=== PATIENT | male | born 1955 | race Caucasian/White ===

== ENCOUNTER → 2016-08-28 | Outpatient (CLI) | payer OTHER | LOC: MW.LAB 08:24 | PROVIDERS: ATTEND Obstetrics & Gynecology | DX: Z13.9 Encounter for screening, unspecified (principal); L40.9 Psoriasis, unspecified | CPT/HCPCS: 36415; 80076; 85025 ==

== ENCOUNTER → 2016-09-04 | Outpatient (CLI) | payer OTHER | END | disposition home or self-care (01) | LOC: MW.LAB 10:08 | PROVIDERS: ATTEND Dermatology | DX: Z13.9 Encounter for screening, unspecified (principal); L40.9 Psoriasis, unspecified | CPT/HCPCS: 36415; 80076; 85025 ==

== ENCOUNTER → 2016-09-11 | Outpatient (CLI) | payer OTHER | LOC: MW.LAB 09:16 | PROVIDERS: ATTEND Dermatology | DX: Z13.9 Encounter for screening, unspecified (principal); L40.9 Psoriasis, unspecified; Z88.0 Allergy status to penicillin | CPT/HCPCS: 36415; 80076; 85025 ==

== ENCOUNTER → 2016-09-18 | Outpatient (CLI) | payer OTHER | LOC: MW.LAB 08:49 | PROVIDERS: ATTEND Dermatology | DX: L40.9 Psoriasis, unspecified (principal); Z13.9 Encounter for screening, unspecified | CPT/HCPCS: 36415; 80076; 85025 ==

== ENCOUNTER → 2016-10-02 | Outpatient (CLI) | payer OTHER | LOC: MW.LAB 08:46 | PROVIDERS: ATTEND Obstetrics & Gynecology | DX: L40.9 Psoriasis, unspecified (principal); Z13.9 Encounter for screening, unspecified; Z88.0 Allergy status to penicillin | CPT/HCPCS: 36415; 80076; 85025 ==

== ENCOUNTER → 2016-10-16 | Outpatient (CLI) | payer OTHER | LOC: MW.LAB 08:45 | PROVIDERS: ATTEND Dermatology | DX: Z13.9 Encounter for screening, unspecified (principal); L40.9 Psoriasis, unspecified | CPT/HCPCS: 36415; 80076; 85025 ==

== ENCOUNTER → 2016-11-10 | Outpatient (CLI) | payer OTHER | LOC: MW.LAB 08:51 | PROVIDERS: ATTEND Dermatology | DX: Z13.9 Encounter for screening, unspecified (principal); L40.9 Psoriasis, unspecified | CPT/HCPCS: 36415; 80076; 85025 ==

== ENCOUNTER 2019-01-23 09:26 | Day surgery (SDC) | payer MEDICAID ==
[~2019-01-23 09:26] MED LIST: Lactated Ringers 1,000 ML IV SCH; Lidocaine 2% 5 ML SDV ONE; Propofol 200 MG/20 ML SDV ONE; Sodium Chloride 0.9% 10 ML SDV IV PRN; Sodium Chloride 0.9% 10 ML Syringe FLUSH PRN; Sodium Chloride 0.9% 2.5 ML Syringe FLUSH PRN; fentaNYL 100 MCG/2 ML SDV ONE
--- NOTE | 2019-01-23 10:34 | PCM.PREANE ---
Preanesthetic Assessment - Anesthesia/Transfusion/Family Hx Anesthesia History: Prior Anesthesia Without Reaction Family History of Anesthesia Reaction: No Transfusion History: No Prior Transfusion(s) Intubation History: Unknown - Review of Systems General: No Symptoms Pulmonary: No Symptoms Cardiovascular: No Symptoms Gastrointestinal: No Symptoms, Other (father had colon cancer) Neurological: No Symptoms Other: Reports: None - Physical Assessment Height: 5 ft 8 in Weight: 105.687 kg ASA Class: 3 Mental Status: Alert & Oriented x3 Airway Class: Mallampati = 2 Dentition: Reports: Normal Dentition, [place](s) (x1 upper front) Thyro-Mental Finger Breadths: 2 Mouth Opening Finger Breadths: 2 ROM/Head Extension: Full Lungs: Clear to Auscultation, Normal Respiratory Effort Cardiovascular: Regular Rate, Regular Rhythm - Allergies Allergies/Adverse Reactions: Allergies Allergy/AdvReac Type Severity Reaction Status Date / Time Penicillins Allergy Cannot Verified 01/19/19 11:02 Remember - Blood Blood Available: No - Anesthesia Plan Pre-Op Medication Ordered: None - Acknowledgements Anesthesia Type Planned: MAC Pt an Appropriate Candidate for the Planned Anesthesia: Yes Alternatives and Risks of Anesthesia Discussed w Pt/Guardian: Yes Pt/Guardian Understands and Agrees with Anesthesia Plan: Yes PreAnesthesia Questionnaire HEENT History: Reports: Hard of Hearing Other HEENT History: wears glasses, has bilateral hearing aides but doesn't wear them Cardiovascular History: Reports: Hypertension Gastrointestinal History: Reports: None Musculoskeletal History: Reports: Arthritis, Fracture Other Musculoskeletal History: hx of fx ribs and foot Endocrine/Metabolic History: Reports: Diabetes, Type II, Obesity/BMI 30+ Dermatologic History: Reports: Psoriasis - Past Surgical History HEENT Surgical History: Reports: Eye Surgery, Tonsillectomy Other HEENT Surgeries/Procedures: repair of detached retina from traumatic injury GI Surgical History: Reports: Hernia, Inguinal Musculoskeletal Surgical History: Reports: Arthroscopic Knee (bilateral) - SUBSTANCE USE Smoking Status *Q: Former Smoker (quit in ) Tobacco Use Within Last Twelve Months: No Recreational Drug Use History: No - HOME MEDS Home Medications: Home Meds Cholecalciferol (Vitamin D3) [Vitamin D3] 5,000 unit PO DAILY 01/19/19 [History] Folic Acid 1 mg PO DAILY 01/19/19 [History] Losartan Potassium 100 mg PO QAM 01/19/19 [History] Meloxicam 15 mg PO DAILY 01/19/19 [History] Methotrexate 15 mg PO WEEKLY 01/19/19 [History] Multivitamin [Daily Multiple Vitamin] 1 tab PO DAILY 01/19/19 [History] metFORMIN HCl [Metformin HCl] 500 mg PO BIDMEALS 01/19/19 [History] - CURRENT (IN HOUSE) MEDS Current Meds: Current Medications Lactated Ringer's (Ringers, Lactated) 1,000 mls @ 125 mls/hr IV ASDIRECTED CAMEL[place] Sodium Chloride (Saline Flush) 10 ml FLUSH ASDIRECTED PRN PRN Reason: Keep Vein Open Sodium Chloride (Saline Flush) 2.5 ml FLUSH ASDIRECTED PRN PRN Reason: Keep Vein Open Sodium Chloride (Saline Flush) 10 ml FLUSH ASDIRECTED PRN PRN Reason: Keep Vein Open Sodium Chloride (Saline Flush) 2.5 ml FLUSH ASDIRECTED PRN PRN Reason: Keep Vein Open Sodium Chloride (Normal Saline) 10 ml IV ASDIRECTED PRN PRN Reason: IV Use Discontinued Medications Fentanyl (Sublimaze) Confirm Administered Dose 100 mcg .ROUTE .STK-MED ONE Stop: 01/23/19 08:56 Lidocaine (Xylocaine-Mpf 2%) Confirm Administered Dose 5 ml .ROUTE .STK-MED ONE Stop: 01/23/19 08:55 Propofol (Diprivan 20 Ml) Confirm Administered Dose 400 mg .ROUTE .STK-MED ONE Stop: 01/23/19 08:56
--- NOTE | 2019-01-23 13:42 | PCM.OPNOTE ---
- General Post-Op/Procedure Note Date of Surgery/Procedure: 01/23/19 Operative Procedure(s): screening colonoscopy Findings: rectal polyp Pre Op Diagnosis: screening colonoscopy Post-Op Diagnosis: rectal polyp Anesthesia Technique: MAC Primary Surgeon: Cori Loja Pathology: rectal polyp EBL in mLs: 0 Condition: Good
--- NOTE | 2019-01-23 14:05 | PCM.POSTAN ---
POST ANESTHESIA ASSESSMENT - MENTAL STATUS Mental Status: Alert, Oriented - VITAL SIGNS Pulse Rate: 70 SaO2: 94 Resp Rate: 12 Blood Pressure: 111/72 - RESPIRATORY Respiratory Status: Respiratory Rate WNL, Airway Patent, O2 Saturation Stable - CARDIOVASCULAR CV Status: Pulse Rate WNL, Blood Pressure Stable - GASTROINTESTINAL GI Status: No Symptoms - PAIN Pain Score: 0 - POST OP HYDRATION Hydration Status: Adequate & Stable
--- NOTE | 2019-01-23 14:25 | PCM48HPAN ---
Post Anesthesia Note - EVALUATION WITHIN 48HRS OF ANESTHETIC Vital Signs in Normal Range: Yes Patient Participated in Evaluation: Yes Respiratory Function Stable: Yes Airway Patent: Yes Cardiovascular Function Stable: Yes Hydration Status Stable: Yes Pain Control Satisfactory: Yes Nausea and Vomiting Control Satisfactory: Yes Pulse Rate: 70 SaO2: 94 Resp Rate: 12 Blood Pressure: 111/72 - COMMENTS/OBSERVATIONS Free Text/Narrative:: Pt doing well with no complications.
--- NOTE | 2019-01-23 20:18 | OR ---
SURGEON: CORI LOJA MD DATE OF PROCEDURE: 01/23/2019 PREOPERATIVE DIAGNOSIS: Screening colonoscopy. POSTOPERATIVE DIAGNOSIS: Rectal polyp. PROCEDURE PERFORMED: Screening colonoscopy with biopsy PRIMARY SURGEON: Cori Loja MD. ANESTHESIA: MAC. INSTRUMENT USED: Olympus colonoscope. EXTENT OF EXAM: To the cecum. PREPARATION: Good. LIMITATIONS: None. INDICATIONS FOR EXAMINATION: The patient is a 63-year-old male who presents for screening colonoscopy. He has a family history of colon cancer. The patient and I discussed the procedure, expected perioperative course, and risks including bleeding, infection, or damage to surrounding structures including perforation. The patient verbalized understanding and wishes to proceed. PROCEDURE IN DETAIL: The patient was brought to the endoscopy suite and placed in a left lateral decubitus position. A time-out was completed verifying the patient's name, age, date of , allergies, and procedure to be performed. Monitored anesthesia care was induced and continuous oxygen was provided via nasal cannula throughout the procedure. After adequate sedation was achieved, a digital rectal exam was performed. This exam was within normal limits. A well lubricated colonoscope was inserted in the rectum and advanced under direct visualization to the level of the cecum. The cecum was identified by both visual and anatomic landmarks. A photograph was taken of the cecal cap, however, due to looping of the scope more proximally, I was unable to retroflex the scope within the cecum. The scope was then fully withdrawn while examining the color, texture, anatomy, and integrity of the mucosa from the cecum to the anal canal. The patient was found to have 1 tiny polyp within the rectum. This was removed in a piecemeal fashion using a cold biopsy forceps. The scope was then retroflexed to allow visualization of the anal canal opening. This appeared normal and a photograph was taken. The scope was then straightened out and fully withdrawn. The cecum to anus time was 9 minutes. The patient tolerated the procedure well and was transferred to the PACU in stable condition. ENDOSCOPIC DIAGNOSIS: Rectal polyp. RECOMMENDATIONS: Follow up in clinic in 2 weeks. MARINE SHETTY /[id number] SIDNEY
== END 2019-01-23 14:30 | disposition home or self-care (01) ==
LOC: MW.SDS 09:26
PROVIDERS: ATTEND Surgery
DX: Z12.11 Encounter for screening for malignant neoplasm of colon (principal); K62.1 Rectal polyp; I10 Essential (primary) hypertension; E11.9 Type 2 diabetes mellitus without complications; M17.11 Unilateral primary osteoarthritis, right knee; Z88.0 Allergy status to penicillin; Z87.891 Personal history of nicotine dependence; Z80.0 Family history of malignant neoplasm of digestive organs; Z79.84 Long term (current) use of oral hypoglycemic drugs; Z79.1 Long term (current) use of non-steroidal anti-inflammatories (NSAID); Z79.899 Other long term (current) drug therapy
CPT/HCPCS: 45380; 82962; J2001; J2704; J3010; J7120; 88305

== ENCOUNTER 2020-09-22 14:16 | Emergency (ER) | payer MEDICARE, OTHER ==
[2020-09-22] MEDS ORDERED: Sodium Chloride 0.9% 2.5 ML Syringe FLUSH PRN (14:36)
[2020-09-22] MEDS ORDERED: Sodium Chloride 0.9% 10 ML Syringe FLUSH PRN (14:36)
--- NOTE | 2020-09-22 14:41 | EDM.PDOC ---
ED HPI GENERAL MEDICAL PROBLEM - General Chief Complaint: Cardiovascular Problem Stated Complaint: dizzy and headache Time Seen by Provider: 09/22/20 14:22 - History of Present Illness INITIAL COMMENTS - FREE TEXT/NARRATIVE: 65-year-old male with a history of hypertension and psoriasis presenting with lightheadedness. The patient cannot recall ever having severe chest pain or heart attack-like symptoms. However he had a nuclear stress test through his primary care doctor's office. This was abnormal and he was subsequently referred to a trapeze performer in [place]. She evaluated him and started him on remove a statin. He started that medicine yesterday. Following starting that medicine he had some fatigue and lightheadedness with very minimal chest pain. It has become more pronounced today. He took his blood pressure and noted that his systolic was in the 90s. His typical systolic blood pressure is 130. He denies any active chest pain. At this time he says that he feels well he denies any symptoms. He denies any exacerbating or alleviating factors radiation or other associated symptoms he denies any other medication changes. He says all of his other medications are longstanding. headache Pain Score (Numeric/FACES): 2 - Related Data Allergies Allergy/AdvReac Type Severity Reaction Status Date / Time Penicillins Allergy Cannot Verified 01/19/19 11:02 Remember Home Meds: Home Meds Folic Acid 1 mg PO DAILY 01/19/19 [History] Losartan Potassium 100 mg PO QAM 01/19/19 [History] Methotrexate 15 mg PO WEEKLY 01/19/19 [History] Aspirin 1 PO DAILY 09/22/20 [History] Rosuvastatin Calcium 10 mg PO 09/22/20 [History] hydroCHLOROthiazide [Hydrochlorothiazide] 25 mg PO DAILY 09/22/20 [History] Past Medical History HEENT History: Reports: Hard of Hearing Other HEENT History: wears glasses, has bilateral hearing aides but doesn't wear them Cardiovascular History: Reports: Hypertension Gastrointestinal History: Reports: None Musculoskeletal History: Reports: Arthritis, Fracture Other Musculoskeletal History: hx of fx ribs and foot Endocrine/Metabolic History: Reports: Diabetes, Type II, Obesity/BMI 30+ Dermatologic History: Reports: Psoriasis - Past Surgical History HEENT Surgical History: Reports: Eye Surgery, Tonsillectomy Other HEENT Surgeries/Procedures: repair of detached retina from traumatic injury GI Surgical History: Reports: Hernia, Inguinal Musculoskeletal Surgical History: Reports: Arthroscopic Knee ED ROS GENERAL - Review of Systems Review Of Systems: See Below Free Text/Narrative/Comment: General: No fever. Skin: No rash. Eyes: No vision problems. ENT: No sore throat. Neck: No neck stiffness. Respiratory: No shortness of breath. Cardiac: No chest pain. Gastrointestinal: No nausea, vomiting or abdominal pain. Urinary: No dysuria. Musculoskeletal: No myalgias/arthralgias. Neurologic: No headache. ED EXAM, GENERAL - Physical Exam Exam: See Below Free Text/Narrative:: General Appearance: No acute distress, appears comfortable HEENT: Normocephalic/atraumatic, sclera anicteric, mucous membranes moist Neck: Normal range of motion Chest and Lungs: Bilateral breath sounds, clear to auscultation Cardiovascular: Regular rate and rhythm, no murmur Abdomen: Soft, non-tender Back: Normal Musculoskeletal: No edema or tenderness Neurologic: Awake, alert, no obvious deficits, moving all extremities Psychiatric: Appropriate, cooperative #1 Interpretation EKG Date: 09/22/20 Time: 14:39 EKG Interpretation Comments: Sinus rhythm with a rate of 90 normal axis QTC is prolonged at 536 no acute ischemia Course - Vital Signs Last Recorded V/S: Last Vital Signs Temp 97.9 F 09/22/20 14:31 Pulse 76 09/22/20 16:05 Resp 14 09/22/20 16:05 BP 117/74 09/22/20 16:05 Pulse Ox 98 09/22/20 16:05 - Orders/Labs/Meds Orders: Active Orders 24 hr Category Date Time Status Sodium Chloride 0.9% [Saline Flush] Med 09/22/20 14:36 Active 10 ml FLUSH ASDIRECTED PRN Sodium Chloride 0.9% [Saline Flush] Med 09/22/20 14:36 Active 2.5 ml FLUSH ASDIRECTED PRN Saline Lock Insert [OM.PC] Stat Oth 09/22/20 14:36 Ordered Medication Orders Sodium Chloride (Sodium Chloride 0.9% 10 Ml Syringe) 10 ml FLUSH ASDIRECTED PRN PRN Reason: Keep Vein Open Last Admin: 09/22/20 15:33 Dose: 10 ml Documented by: TURNER Sodium Chloride (Sodium Chloride 0.9% 2.5 Ml Syringe) 2.5 ml FLUSH ASDIRECTED PRN PRN Reason: Keep Vein Open Labs: Laboratory Tests 09/22/20 09/22/20 Range/Units 14:27 14:27 WBC 5.27 (4.0-11.0) K/uL RBC 4.00 L (4.50-5.90) M/uL Hgb 13.8 (13.0-17.0) g/dL Hct 39.1 (38.0-50.0) % MCV 97.8 (80.0-98.0) fL MCH 34.5 H (27.0-32.0) pg MCHC 35.3 (31.0-37.0) g/dL RDW Std Deviation 49.7 (28.0-62.0) fl RDW Coeff of Aroldo 14 (11.0-15.0) % Plt Count 107 L (150-400) K/uL MPV 9.20 (7.40-12.00) fL Neut % (Auto) 56.3 (48.0-80.0) % Lymph % (Auto) 34.2 (16.0-40.0) % [place] % (Auto) 7.6 (0.0-15.0) % Eos % (Auto) 1.3 (0.0-7.0) % Baso % (Auto) 0.6 (0.0-1.5) % Neut # (Auto) 3.0 (1.4-5.7) K/uL Lymph # (Auto) 1.8 (0.6-2.4) K/uL [place] # (Auto) 0.4 (0.0-0.8) K/uL Eos # (Auto) 0.1 (0.0-0.7) K/uL Baso # (Auto) 0.0 (0.0-0.1) K/uL Nucleated RBC % 0.0 /100WBC Nucleated RBCs # 0 K/uL Sodium 136 (136-148) mmol/L Potassium 4.1 (3.5-5.1) mmol/L Chloride 99 (98-107) mmol/L Carbon Dioxide 26.1 (21.0-32.0) mmol/L BUN 31 H (7.0-18.0) mg/dL Creatinine 2.0 H (0.8-1.3) mg/dL Est Cr Clr Drug Dosing 36.82 mL/min Estimated GFR (MDRD) 33.7 ml/min Glucose 165 H (74-106) mg/dL Calcium 9.0 (8.5-10.1) mg/dL Magnesium 2.5 H (1.8-2.4) mg/dL Total Bilirubin 0.9 (0.2-1.0) mg/dL AST 57 H (15-37) IU/L ALT 73 H (14-63) IU/L Alkaline Phosphatase 97 (46-116) U/L Troponin I < 0.050 (0.000-0.056) ng/mL Total Protein 7.9 (6.4-8.2) g/dL Albumin 3.7 (3.4-5.0) g/dL Globulin 4.2 H (2.6-4.0) g/dL Albumin/Globulin Ratio 0.9 (0.9-1.6) Meds: Medications Generic Name Dose Route Start Last Admin Trade Name Freq PRN Reason Stop Dose Admin Sodium Chloride 10 ml 09/22/20 14:36 09/22/20 15:33 Sodium Chloride 0.9% 10 Ml Syringe FLUSH 10 ml ASDIRECTED PRN Administration Keep Vein Open Sodium Chloride 2.5 ml 09/22/20 14:36 Sodium Chloride 0.9% 2.5 Ml Syringe FLUSH ASDIRECTED PRN Keep Vein Open Discontinued Medications Generic Name Dose Route Start Last Admin Trade Name Freq PRN Reason Stop Dose Admin Sodium Chloride 1,000 mls @ 999 mls/hr 09/22/20 15:16 09/22/20 15:31 Normal Saline IV 09/22/20 16:16 999 mls/hr .Bolus ONE Administration Departure - Departure Time of Disposition: 16:32 Disposition: Home, Self-Care 01 Condition: Good Clinical Impression: Hypotension Instructions: Hypotension, [id number] Referrals: Robin Cobb MD [Primary Care Provider] - Forms: ED Department Discharge Additional Instructions: Please do not take any more of the new rouvastatin medicine. Please be sure to call Dr. Cobb's office tomorrow morning as well as your trapeze performer in [place]. They will help you manage your multiple medications. The following information is given to patients seen in the emergency department who are being discharged to home. This information is to outline your options for follow-up care. We provide all patients seen in our emergency department with a follow-up referral. The need for follow-up, as well as the timing and circumstances, are variable depending upon the specifics of your emergency department visit. If you don't have a primary care physician on staff, we will provide you with a referral. We always advise you to contact your personal physician following an emergency department visit to inform them of the circumstance of the visit and for follow-up with them and/or the need for any referrals to a consulting specialist. The emergency department will also refer you to a specialist when appropriate. This referral assures that you have the opportunity for follow-up care with a specialist. All of these measure are taken in an effort to provide you with optimal care, which includes your follow-up. Under all circumstances we always encourage you to contact your private physician who remains a resource for coordinating your care. When calling for follow-up care, please make the office aware that this follow-up is from your recent emergency room visit. If for any reason you are refused follow-up, please contact the [facility] Emergency Department at and asked to speak to the emergency department charge nurse. Sepsis Event Note (ED) - Focused Exam Vital Signs: Vital Signs Temp Pulse Resp BP Pulse Ox 09/22/20 16:05 76 14 117/74 98 09/22/20 14:31 97.9 F 92 18 100/62 93 L - My Orders Last 24 Hours: My Active Orders 09/22/20 14:36 Sodium Chloride 0.9% [Saline Flush] 10 ml FLUSH ASDIRECTED PRN Sodium Chloride 0.9% [Saline Flush] 2.5 ml FLUSH ASDIRECTED PRN Saline Lock Insert [OM.PC] Stat - Assessment/Plan Last 24 Hours: My Active Orders 09/22/20 14:36 Sodium Chloride 0.9% [Saline Flush] 10 ml FLUSH ASDIRECTED PRN Sodium Chloride 0.9% [Saline Flush] 2.5 ml FLUSH ASDIRECTED PRN Saline Lock Insert [OM.PC] Stat Assessment:: 65-year-old male presenting with lightheadedness and hypotension after starting Meme statin. This would be an unusual effect for a statin. However, the patient is adamant that his other medications are longstanding. No active chest pain but recent [place] is a consideration no shortness of breath no tachycardia O2 greater than 90 nothing that suggests PE. Patient feels very well lying in the bed. No history of recent GI bleeding. No abdominal pain. Abdominal exam benign. No clinical signs that would suggest sepsis. If initial evaluation is unremarkable then I would favor stopping the fluvastatin and following up closely with her primary care provider. We will continue to reassess. Labs demonstrate a very minimal EMILEE. Otherwise they were unremarkable patient was given a liter of IV fluid blood pressure is improved he feels very well he was able to ambulate with a steady gait and is asymptomatic. Because the lovastatin is the one new medication and he has been so stable on all the others patient will hold the pravastatin for now and will follow up with his primary care doctor tomorrow. Return precaution discussed and understood.
--- NOTE | 2020-09-22 15:01 | CR ---
INDICATION: Lightheadedness hypotension TECHNIQUE: Single view chest. FINDINGS: The lungs are clear. The heart, mediastinum and pulmonary vessels are of normal size. There is no evidence of pleural disease. IMPRESSION: Negative chest. Dictated by Cordelia Mann MD @ Sep 22 2020 2:59PM Signed by Dr. Cordelia Mann @ Sep 22 2020 3:00PM
[2020-09-22 15:04] LABS: BLOOD UREA NITROGEN,BUN 31 mg/dL (7.0-18.0); CARBON DIOXIDE,CO2 26.1 mmol/L (21.0-32.0); CHLORIDE,CL 99 mmol/L (98-107); GLUCOSE RANDOM 165 mg/dL (74-106); POTASSIUM,K 4.1 mmol/L (3.5-5.1); SODIUM,NA 136 mmol/L (136-148)
[2020-09-22] MEDS ORDERED: Sodium Chloride 0.9% 1,000 ML IV ONE (15:16)
== END 2020-09-22 16:46 | disposition home or self-care (01) ==
LOC: MW.ED 14:16
DX: I95.9 Hypotension, unspecified (principal); I10 Essential (primary) hypertension; M19.90 Unspecified osteoarthritis, unspecified site; E11.9 Type 2 diabetes mellitus without complications; E66.9 Obesity, unspecified; Z68.35 Body mass index [BMI] 35.0-35.9, adult; Z88.0 Allergy status to penicillin; Z79.82 Long term (current) use of aspirin; Z79.899 Other long term (current) drug therapy
CPT/HCPCS: 36415; 71045; 80053; 83735; 84484; 85025; 93005; 99284; J7030; 93010; 99283